=== PATIENT | male | born 1965 | race Caucasian/White ===

== ENCOUNTER 2016-10-25 08:20 | Day surgery (SDC) | payer OTHER ==
[~2016-10-25] VITALS: Ht 165.1 cm; Wt 86.0 kg
[~2016-10-25 08:20] MED LIST: ABILIFY2 MG PO; ACTOS15 MG PO; AMLODIPINE BESYL5 MG PO; ARIPIPRAZOLE PO; ARIPIPRAZOLE2 MG PO; ASPIR 8181 M1 PO; ASPIR-LOW81 MG PO; Ambien PO; Atarax,Vistaril PO; BACTROBAN OINTM22 GM TP; BUMETANIDE1 MG PO; BUMEX1 MG PO; BUMEX2 MG PO; BUSPAR15 MG PO; BUSPAR7.5 MG PO; BUSPIRONE HCL7.5 MG PO; CARVEDILOL25 MG PO; CATAPRES0.1 MG PO; CELEXA40 MG PO; CHLORPROMAZINE10 MG PO; CHLORPROMAZINE25 MG PO; CHLORPROMAZINE50 MG PO; CITALOPRAM HBR40 MG PO; CLONIDINE HCL0.1 MG PO; CLOPIDOGREL75 MG PO; COREG25 M1 PO; CORTIZONE-10 PL57 GM TP; Celexa PO; DOCUSATE SODIU100 MG PO; DULCOLAX10 MG PR; EMLA 30 GM30 GM TP; FLEET MINERAL133 ML PR; FLORASTOR250 MG PO; GLUCAGEN1 MG IM; GLUCAGON1 MG IM; GLUCOPHAGE500 MG PO; GLUCOSE GEL15 GM PO; Glucotrol PO; HYDRALAZINE HCL50 MG PO; HYDROCHLOROTHIA25 MG PO; HYDROCORTISON28.4 GM TP; HYDROCORTISONE30 G1 TP; LANTUS (UNITS)1 UNIT SC; LANTUS 10100 UNITS/ SC; LASIX20 MG PO; LEVEMIR100 UNIT/2 SC; LIDOCAINE-PRIL1 EACH TP; LISINOPRIL10 MG PO; LO-DOSE ASPIRIN81 M1 PO; LORTAB 5-500 T1 EACH PO; LOSARTAN POTASS50 MG PO; LOW DOSE ASPIRI81 M1 PO; LOW DOSE ASPIRI81 M2 PO; METOPROLOL TAR100 MG PO; METOPROLOL TART25 MG PO; METOPROLOL TART50 MG PO; METOPROLOL TARTRATE PO; MILK OF MAGN PO; NABI650T PO; NIFEDIPINE ER30 MG PO; NIZORAL A-D120 ML TP; NOHOMEMEDS; NORVASC5 MG PO; NOVOLOG 10100 UNITS/ SC; NYSTATIN-TRIAMC15 GM TP; PHILLIPS'400 MG/5 M PO; PLAVIX75 MG PO; PROCRIT10000 UNI1 SC; PROCRIT20000 UNI2 SC; RENVELA800 MG PO; SELSUN BLUE MO207 ML TP; SELSUN BLUE NA325 ML TP; SEVELAMER CARB800 MG PO; SIMVASTATIN10 MG PO; SODIUM BICARBO325 MG PO; STOOL SOFTENER100 MG PO; THORAZINE50 MG PO; TRAMADOL HCL50 MG PO; TRAZODONE HCL50 MG PO; TYLENOL REGULA325 MG PO; VITAMIN D-32000 UNI2 PO; VITAMIN D2000 INTUN PO; VITAMIN D2000 UNI1 PO; VITAMIN D32000 UNI1 PO; ZOCOR10 MG PO; ZOCOR20 MG PO; ZYPREXA2.5 MG PO; Zocor PO
[2016-10-25 09:23] LABS: POINT-OF-CARE METER ID UU13113696
[2016-10-25 10:19] LABS: METH RESISTANT S AUREUS PCR NEGATIVE (NEGATIVE)
[2016-10-25 10:27] LABS: PROBE CHECK PASS; SPECIMEN PROCESSING CONTROL PASS
== END 2016-10-25 13:40 ==
LOC: CATH 08:20
PROVIDERS: Surgery
DX: T82.858A Stenosis of other vascular prosthetic devices, implants and grafts, initial encounter (principal); Y83.2 Surgical operation with anastomosis, bypass or graft as the cause of abnormal reaction of the patient, or of later complication, without mention of misadventure at the time of the procedure; I12.0 Hypertensive chronic kidney disease with stage 5 chronic kidney disease or end stage renal disease; E11.22 Type 2 diabetes mellitus with diabetic chronic kidney disease; N18.6 End stage renal disease; Z99.2 Dependence on renal dialysis; Z86.73 Personal history of transient ischemic attack (TIA), and cerebral infarction without residual deficits; H54.0 Blindness, both eyes; Z79.82 Long term (current) use of aspirin; Z79.4 Long term (current) use of insulin
CPT/HCPCS: 82948; 87641; C1725; C1769; C1894; J1644; J2250; J3010

== ENCOUNTER 2017-02-21 08:02 | Day surgery (SDC) | payer OTHER ==
[~2017-02-21] VITALS: Ht 165.1 cm; Wt 87.1 kg
[~2017-02-21 08:02] MED LIST changes: +ZOLOFT25 MG PO; +ZOLOFT50 MG PO
[2017-02-21 10:08] LABS: POINT-OF-CARE METER ID UU13113819
[2017-02-21 10:10] LABS: METH RESISTANT S AUREUS PCR NEGATIVE (NEGATIVE)
[2017-02-21 10:15] LABS: PROBE CHECK PASS; SPECIMEN PROCESSING CONTROL PASS
== END 2017-02-21 12:05 ==
LOC: CATH 08:02
PROVIDERS: Surgery
DX: T82.858A Stenosis of other vascular prosthetic devices, implants and grafts, initial encounter (principal); I12.9 Hypertensive chronic kidney disease with stage 1 through stage 4 chronic kidney disease, or unspecified chronic kidney disease; E11.22 Type 2 diabetes mellitus with diabetic chronic kidney disease; N18.9 Chronic kidney disease, unspecified; I69.898 Other sequelae of other cerebrovascular disease; Y83.2 Surgical operation with anastomosis, bypass or graft as the cause of abnormal reaction of the patient, or of later complication, without mention of misadventure at the time of the procedure
CPT/HCPCS: 82948; 87641; C1725; C1769; C1894; J1644; J2250; J3010